=== PATIENT | female | born 1940 | race Caucasian/White ===

== ENCOUNTER → 2019-02-17 | Outpatient (CLI) | payer MEDICARE, BC | LOC: COL.RAD 02-14 08:30 | DX: J98.4 Other disorders of lung (principal); K80.20 Calculus of gallbladder without cholecystitis without obstruction; N28.1 Cyst of kidney, acquired; M47.814 Spondylosis without myelopathy or radiculopathy, thoracic region; R91.8 Other nonspecific abnormal finding of lung field ==

== ENCOUNTER 2022-02-20 11:07 | Day surgery (SDC) | payer MEDICARE, BC ==
[~2022-02-20] VITALS: Ht 172.7 cm; Wt 69.4 kg
[2022-02-20 12:00] VITALS: BP 153/87; PULSE 67; TEMP 97.5
[2022-02-20 13:35] VITALS: BP 143/70; PULSE 67; TEMP 96.7
--- NOTE | 2022-02-20 13:35 | NUR ---
Pt arrived from procedure, drowsy but oriented. Pt was settled by Nroma FINCH. Monitors applied and VSS. Crackers and water provided per pt request. Warm blankets provided. Verbal report obtained. Call salas remains within reach.
[2022-02-20 13:50] VITALS: BP 140/71; PULSE 63
--- NOTE | 2022-02-20 13:50 | NUR ---
VSS. Pt expressed desire to be discharged. Call salas remains within reach. Daughter contacted per pt request.
--- NOTE | 2022-02-20 14:00 | NUR ---
VSS. IV discontinued. Catheter tip intact. Pressure bandage applied. No redness or swelling noted. DC instructions and educational material reviewed with the pt, who verbalized understanding and signed the related paperwork. Pt denied needing assistance changing into personal clothes. Call salas remains within reach.
[2022-02-20 14:02] VITALS: BP 165/84; PULSE 64
--- NOTE | 2022-02-20 14:18 | NUR ---
Pt dismissed from endo via wheelchair to the pt entrence and transferred into the care of her daughter, who is present to drive. Pt had DC packet and personal belongings.
== END 2022-02-20 14:19 | disposition home or self-care (01) ==
LOC: SDCO 11:07
DX: K63.5 Polyp of colon (principal); K57.30 Diverticulosis of large intestine without perforation or abscess without bleeding; R19.7 Diarrhea, unspecified; R15.2 Fecal urgency; F17.210 Nicotine dependence, cigarettes, uncomplicated; Z79.899 Other long term (current) drug therapy
CPT/HCPCS: J2704; J7030

== ENCOUNTER 2023-08-04 17:05 | Emergency (ER) | payer MEDICARE, BC ==
[~2023-08-04] VITALS: Ht 170.2 cm; Wt 63.6 kg
[2023-08-04 17:07] VITALS: TEMP 97.6
[2023-08-04 19:07] VITALS: BP 151/97; PULSE 76
[2023-08-04 19:53] LABS: COLLECTION METHOD CLEAN CATCH
[2023-08-04 20:14] LABS: URINE APPEARANCE Clear (CLEAR/HAZY); URINE BLOOD Negative (NEGATIVE); URINE COLOR Yellow (YELLOW); URINE GLUCOSE Negative (NEGATIVE); URINE KETONE 1+ (NEGATIVE); URINE NITRATE Negative (NEGATIVE); URINE PROTEIN(semi-quant) 1+ (NEGATIVE); URINE UROBILINOGEN 0.2 E.U/dL (0.2-1.0)
[2023-08-04 20:15] LABS: SQUAMOUS EPITHELIAL 0-2 /hpf (0-10); URINE RBC None Seen /hpf (0-2)
[2023-08-04 20:16] LABS: URINE BACTERIA Occasional /hpf (NONE SEEN)
== END 2023-08-04 20:28 | disposition home or self-care (01) ==
LOC: COL.ER 17:05
PROVIDERS: Nurse Practitioner Primary Care
DX: S00.93XA Contusion of unspecified part of head, initial encounter (principal); S40.012A Contusion of left shoulder, initial encounter; F17.210 Nicotine dependence, cigarettes, uncomplicated; W01.10XA Fall on same level from slipping, tripping and stumbling with subsequent striking against unspecified object, initial encounter